=== PATIENT | male | born 1985 | race Caucasian/White ===

== ENCOUNTER 2018-10-06 23:46 | Emergency (ER) | payer BC ==
[2018-10-07] MEDS ORDERED: SODIUM CHLORIDE 0.9% 1,000 ML IV STA (00:17)
[2018-10-07] MEDS ORDERED: HYDROmorphone 1 MG/ML 1 ML SYRINGE IVP STA (00:17)
[2018-10-07] MEDS ORDERED: ONDANSETRON 4 MG/2 ML VIAL IVP STA (00:17)
[2018-10-07 00:32] LABS: Basophils # (A) 0.1 k/uL (0-0.2); Basophils % (A) 1 %; Eosinophils # (A) 0.1 k/uL (0-0.7); Eosinophils % (A) 1 %; HCT 47.3 % (39.0-53.0); Lymphocytes # (A) 1.8 k/uL (1.0-4.8); Lymphocytes % (A) 11 %; MCH 30.1 pg (25.0-35.0); MCHC 33.8 g/dL (31.0-37.0); MCV 88.8 fL (80.0-100.0); Mean Platelet Volume 6.4; Monocytes # (A) 0.8 k/uL (0-1.0); Monocytes % (A) 5 %; Neutrophils % (A) 81 %; Platelet Count 328 k/uL (150-450); RBC 5.33 m/uL (4.30-5.90); RDW 12.2 % (11.5-15.5)
--- NOTE | 2018-10-07 00:41 | ED ---
Abdominal Pain HPI - General Source: patient Mode of arrival: ambulatory Limitations: no limitations <America Farah - Last Filed: 10/07/18 02:20> <Heather Marina - Last Filed: 10/09/18 03:29> - General Chief Complaint: Abdominal Pain Stated Complaint: Abdominal Pain Time Seen by Provider: 10/06/18 23:58 - History of Present Illness Initial Comments: 32-year-old male patient presents to the emergency department today for evaluation of lower abdominal pain. Patient states the pain is been present for the last 5 days but has been steadily worsening. Patient states he has been passing mucousy bloody diarrhea. Patient states he does have history of diverticulitis and this does feel similar to that episode. He denies fever or chills with this. Denies nausea or vomiting. Patient denies any recent rash, shortness breath, chest pain, back pain, numbness, tingling, dizziness, weakness, hematuria, dysuria, urinary urgency, urinary frequency, headache, visual changes, or any other complaints. (America Farah) - Related Data Previous Rx's Medication Instructions Recorded Amoxic-Pot Clav 875-125Mg 1 tab PO Q12HR #20 tablet 10/07/18 [Augmentin 875-125] Allergies Allergy/AdvReac Type Severity Reaction Status Date / Time No Known Allergies Allergy Verified 10/06/18 23:54 Review of Systems ROS Other: All systems not noted in ROS Statement are negative. <America Farah - Last Filed: 10/07/18 02:20> ROS Other: All systems not noted in ROS Statement are negative. <Heather Marina - Last Filed: 10/09/18 03:29> ROS Statement: Those systems with pertinent positive or pertinent negative responses have been documented in the HPI. Past Medical History Past Medical History: No Reported History, GERD/Reflux Additional Past Medical History / Comment(s): BRONCHITIS History of Any Multi-Drug Resistant Organisms: None Reported Past Surgical History: Adenoidectomy, Ear Surgery, Hernia Repair Additional Past Surgical History / Comment(s): acl replacement RT KNEE, RIKKI INGUINAL HERNIA REPAIR, TUBES IN EARS. Past Anesthesia/Blood Transfusion Reactions: No Reported Reaction Past Psychological History: No Psychological Hx Reported Smoking Status: Former smoker Past Alcohol Use History: Occasional Past Drug Use History: Marijuana - Past Family History Father Family Medical History: Hypertension Additional Family Medical History / Comment(s): COLON PLOYPS Mother Family Medical History: No Reported History <America Farah - Last Filed: 10/07/18 02:20> General Exam Limitations: no limitations General appearance: alert, in no apparent distress, other (Physical well- developed, well-nourished adult male patient in no acute distress. Vital signs upon presentation are temperature 97.2F, pulse 100, respirations 20, blood pressure 107/66, pulse ox 98% on room air.) Eye exam: Present: normal appearance, PERRL, EOMI. Absent: scleral icterus, conjunctival injection, periorbital swelling ENT exam: Present: normal exam, normal oropharynx, mucous membranes moist Neck exam: Present: normal inspection. Absent: tenderness, meningismus, lymphadenopathy Respiratory exam: Present: normal lung sounds bilaterally. Absent: respiratory distress, wheezes, rales, rhonchi, stridor Cardiovascular Exam: Present: regular rate, normal rhythm, normal heart sounds. Absent: systolic murmur, diastolic murmur, rubs, gallop, clicks GI/Abdominal exam: Present: soft, tenderness (Lower abdominal tenderness), normal bowel sounds. Absent: distended, guarding, rebound, rigid Neurological exam: Present: alert, oriented X3, CN II-XII intact Psychiatric exam: Present: normal affect, normal mood Skin exam: Present: warm, dry, intact, normal color. Absent: rash <America Farah M - Last Filed: 10/07/18 02:20> Course Vital Signs 10/06/18 10/07/18 10/07/18 23:52 01:14 02:32 Temperature 97.2 F L 98.3 F Pulse Rate 100 82 74 Respiratory 20 16 16 Rate Blood Pressure 107/66 127/67 109/61 O2 Sat by Pulse 98 100 96 Oximetry Medical Decision Making - Lab Data Result diagrams: 10/07/18 00:08 10/07/18 00:08 - Radiology Data Radiology results: report reviewed, image reviewed <America Farah - Last Filed: 10/07/18 02:20> - Lab Data Result diagrams: 10/07/18 00:08 10/07/18 00:08 <Heather Marina - Last Filed: 10/09/18 03:29> - Medical Decision Making 32-year-old male patient presents to the emergency department today for evaluati on of lower abdominal pain. Physical examination did reveal tenderness over the suprapubic and right lower quadrant. Labs reviewed and did reveal elevated white blood cell count 16.0. CT abdomen and pelvis was obtained and showed evidence for acute sigmoid diverticulitis. Patient will be discharged with prescription for Augmentin. He is instructed to monitor diet and to take [id number] Tylenol for pain control. Return parameters were discussed in detail. He verbalizes understanding and agrees with this plan. (America Farah) I was available for consultation in the emergency department. The history and physical exam were done by the midlevel provider. I was consulted for this patient's care. I reviewed the case with the midlevel provider and based on their presentation of the patient, I agree with the assessment, medical decision making and plan of care as documented. Chart was dictated using [employer] dictation software. Attempts were made to correct any dictation errors however some typographical errors may persist. (Heather Marina) - Lab Data Lab Results 10/07/18 10/07/18 10/07/18 Range/Units 00:08 00:08 00:08 WBC 16.0 H (3.8-10.6) k/uL RBC 5.33 (4.30-5.90) m/uL Hgb 16.0 (13.0-17.5) gm/dL Hct 47.3 (39.0-53.0) % MCV 88.8 (80.0-100.0) fL MCH 30.1 (25.0-35.0) pg MCHC 33.8 (31.0-37.0) g/dL RDW 12.2 (11.5-15.5) % Plt Count 328 (150-450) k/uL Neutrophils % 81 % Lymphocytes % 11 % Monocytes % 5 % Eosinophils % 1 % Basophils % 1 % Neutrophils # 13.0 H (1.3-7.7) k/uL Lymphocytes # 1.8 (1.0-4.8) k/uL Monocytes # 0.8 (0-1.0) k/uL Eosinophils # 0.1 (0-0.7) k/uL Basophils # 0.1 (0-0.2) k/uL PT (9.0-12.0) sec INR (<1.2) APTT (22.0-30.0) sec Sodium 137 (137-145) mmol/L Potassium 4.0 (3.5-5.1) mmol/L Chloride 100 (98-107) mmol/L Carbon Dioxide 23 (22-30) mmol/L Anion Gap 14 mmol/L BUN 13 (9-20) mg/dL Creatinine 0.88 (0.66-1.25) mg/dL Est GFR (CKD-EPI)AfAm >90 (>60 ml/min/1.73 sqM) Est GFR (CKD-EPI)NonAf >90 (>60 ml/min/1.73 sqM) Glucose 77 (74-99) mg/dL Plasma Lactic Acid Mckinley 0.9 (0.7-2.0) mmol/L Calcium 9.3 (8.4-10.2) mg/dL Total Bilirubin 0.9 (0.2-1.3) mg/dL AST 21 (17-59) U/L ALT 21 (21-72) U/L Alkaline Phosphatase 70 (38-126) U/L Total Protein 7.3 (6.3-8.2) g/dL Albumin 4.4 (3.5-5.0) g/dL Amylase <30 L (30-110) U/L Lipase 39 (23-300) U/L Urine Color Urine Appearance (Clear) Urine pH (5.0-8.0) Ur Specific Loiza (1.001-1.035) Urine Protein (Negative) Urine Glucose (UA) (Negative) Urine Ketones (Negative) Urine Blood (Negative) Urine Nitrite (Negative) Urine Bilirubin (Negative) Urine Urobilinogen (<2.0) mg/dL Ur Leukocyte Esterase (Negative) 10/07/18 10/07/18 Range/Units 00:08 00:10 WBC (3.8-10.6) k/uL RBC (4.30-5.90) m/uL Hgb (13.0-17.5) gm/dL Hct (39.0-53.0) % MCV (80.0-100.0) fL MCH (25.0-35.0) pg MCHC (31.0-37.0) g/dL RDW (11.5-15.5) % Plt Count (150-450) k/uL Neutrophils % % Lymphocytes % % Monocytes % % Eosinophils % % Basophils % % Neutrophils # (1.3-7.7) k/uL Lymphocytes # (1.0-4.8) k/uL Monocytes # (0-1.0) k/uL Eosinophils # (0-0.7) k/uL Basophils # (0-0.2) k/uL PT 10.5 (9.0-12.0) sec INR 1.0 (<1.2) APTT 25.5 (22.0-30.0) sec Sodium (137-145) mmol/L Potassium (3.5-5.1) mmol/L Chloride (98-107) mmol/L Carbon Dioxide (22-30) mmol/L Anion Gap mmol/L BUN (9-20) mg/dL Creatinine (0.66-1.25) mg/dL Est GFR (CKD-EPI)AfAm (>60 ml/min/1.73 sqM) Est GFR (CKD-EPI)NonAf (>60 ml/min/1.73 sqM) Glucose (74-99) mg/dL Plasma Lactic Acid Mckinley (0.7-2.0) mmol/L Calcium (8.4-10.2) mg/dL Total Bilirubin (0.2-1.3) mg/dL AST (17-59) U/L ALT (21-72) U/L Alkaline Phosphatase (38-126) U/L Total Protein (6.3-8.2) g/dL Albumin (3.5-5.0) g/dL Amylase (30-110) U/L Lipase (23-300) U/L Urine Color Yellow Urine Appearance Clear (Clear) Urine pH 5.5 (5.0-8.0) Ur Specific Loiza >1.050 H (1.001-1.035) Urine Protein Trace H (Negative) Urine Glucose (UA) Negative (Negative) Urine Ketones 4+ H (Negative) Urine Blood Negative (Negative) Urine Nitrite Negative (Negative) Urine Bilirubin Negative (Negative) Urine Urobilinogen <2.0 (<2.0) mg/dL Ur Leukocyte Esterase Negative (Negative) - Radiology Data CT abdomen and pelvis with contrast was obtained. Report was reviewed in its entirety. Impression by Dr. Roth shows evidence of acute sigmoid diverticulitis. No bowel obstruction. (America Farah) Disposition Is patient prescribed a controlled substance at d/c from ED?: No Time of Disposition: 01:58 <America Farah - Last Filed: 10/07/18 02:20> <Heather Marina - Last Filed: 10/09/18 03:29> Clinical Impression: Diverticulitis Disposition: HOME SELF-CARE Condition: Good Instructions (If sedation given, give patient instructions): Diverticulitis (ED), Diverticulitis Diet (ED) Additional Instructions: Start with clear liquid diet and advance as tolerated. Complete antibiotic prescription in full even if you start to feel better. Take tylenol/acetaminophen over the counter for pain control. Return to the emergency department immediately for any new, worsening, or concerning symptoms. Prescriptions: Amoxic-Pot Clav 875-125Mg [Augmentin 875-125] 1 tab PO Q12HR #20 tablet Referrals: None,Stated [Primary Care Provider] - 1-2 days
[2018-10-07 00:42] LABS: Partial Thromboplastin Time 25.5 sec (22.0-30.0); Prothrombin Time 10.5 sec (9.0-12.0)
[2018-10-07 00:58] LABS: ALT 21 U/L (21-72); AST 21 U/L (17-59); Albumin 4.4 g/dL (3.5-5.0); Alkaline Phosphatase 70 U/L (38-126); Anion Gap 14 mmol/L; Blood Urea Nitrogen 13 mg/dL (9-20); Calcium 9.3 mg/dL (8.4-10.2); Carbon Dioxide 23 mmol/L (22-30); Chloride 100 mmol/L (98-107); Glucose 77 mg/dL (74-99); Lipase 39 U/L (23-300); Sodium 137 mmol/L (137-145); Total Bilirubin 0.9 mg/dL (0.2-1.3); Total Protein 7.3 g/dL (6.3-8.2)
--- NOTE | 2018-10-07 01:01 | CT ---
EXAM: CT Abdomen and Pelvis With Intravenous Contrast CLINICAL HISTORY: ITS.REASON CT Reason: abdominal pain TECHNIQUE: Axial computed tomography images of the abdomen and pelvis with intravenous contrast. CTDI is 15 mGy and DLP is 650 mGy-cm. This CT exam was performed using one or more of the following dose reduction techniques: automated exposure control, adjustment of the mA and/or kV according to patient size, and/or use of iterative reconstruction technique. COMPARISON: CT abdomen 03/31/16 FINDINGS: Lung bases: No mass. No consolidation. ABDOMEN: Liver: Unremarkable. Gallbladder and bile ducts: Unremarkable. Pancreas: Unremarkable. Spleen: Unremarkable. Adrenals: Unremarkable. Kidneys and ureters: No hydronephrosis. Stomach and bowel: No bowel obstruction. Thickened and inflamed sigmoid colon with underlying diverticulosis. PELVIS: Appendix: No evidence of appendicitis. Bladder: Unremarkable. Reproductive: Unremarkable. ABDOMEN and PELVIS: Intraperitoneal space: Unremarkable. Bones/joints: No acute fractures. Soft tissues: Unremarkable. Vasculature: No abdominal aortic aneurysm. Lymph nodes: No enlarged lymph nodes. IMPRESSION: Evidence of acute sigmoid diverticulitis. No bowel obstruction. <MYCVCSECTION> [employer] 10/07/18 01:14 Verify Receipt Verified receipt with QUIRINO Deleon for Dr. Farah on 10/07 01:14 (-04:00)
[2018-10-07 01:15] VITALS: RESP 16
[2018-10-07 01:21] LABS: Amylase <30 U/L (30-110)
[2018-10-07 01:32] LABS: Appearance,Urine Clear (Clear); Bilirubin,Urine Negative (Negative); Blood,Urine Negative (Negative); Color,Urine Yellow; Glucose,Urine (UA) Negative (Negative); Ketones,Urine 4+ (Negative); Leukocyte Esterase,Urine Negative (Negative); Nitrite,Urine Negative (Negative); PH, Urine 5.5 (5.0-8.0); Protein,Urine Trace (Negative); Urobilinogen,Urine <2.0 mg/dL (<2.0)
[2018-10-07 01:47] LABS: Specific Gravity,Urine >1.050 (1.001-1.035)
[2018-10-07] MEDS ORDERED: AMOXIC-POT CLAV 875MG STARTER 2 EACH TABLET PO STA (01:58)
[2018-10-07 02:33] VITALS: BP 109/61; PULSE 74; TEMP 98.3
== END 2018-10-07 02:40 | disposition home or self-care (01) ==
LOC: EC 23:46
DX: K57.32 Diverticulitis of large intestine without perforation or abscess without bleeding (principal); D72.829 Elevated white blood cell count, unspecified; K92.1 Melena; Z87.891 Personal history of nicotine dependence; Z87.19 Personal history of other diseases of the digestive system; Z98.890 Other specified postprocedural states; Z83.79 Family history of other diseases of the digestive system
CPT/HCPCS: 36415; 80053; 82150; 83605; 83690; 85025; 85610; 85730; 81003; 87040; 74177; 99284; 96374; 96375; 96361; J2405; J1170; Q9967

== ENCOUNTER 2018-10-11 18:00 | Inpatient (IN) | payer BC ==
[2018-10-11] MEDS ORDERED: SODIUM CHLORIDE 0.9% 500 ML 500 ML IV STA (18:56)
[2018-10-11] MEDS ORDERED: SODIUM CHLORIDE 0.9% 1,000 ML IV STA (18:56)
[2018-10-11] MEDS ORDERED: HYDROmorphone 1 MG/ML 1 ML SYRINGE IVP STA (18:57)
[2018-10-11 19:41] LABS: Basophils # (A) 0.1 k/uL (0-0.2); Basophils % (A) 1 %; Eosinophils # (A) 0.2 k/uL (0-0.7); Eosinophils % (A) 2 %; HCT 47.1 % (39.0-53.0); HGB 16.2 gm/dL (13.0-17.5); Lymphocytes # (A) 1.5 k/uL (1.0-4.8); Lymphocytes % (A) 16 %; MCH 30.4 pg (25.0-35.0); MCHC 34.4 g/dL (31.0-37.0); MCV 88.4 fL (80.0-100.0); Mean Platelet Volume 6.5; Monocytes # (A) 0.5 k/uL (0-1.0); Monocytes % (A) 5 %; Neutrophils # (A) 6.6 k/uL (1.3-7.7); Neutrophils % (A) 74 %; Platelet Count 326 k/uL (150-450); RBC 5.32 m/uL (4.30-5.90); RDW 12.1 % (11.5-15.5)
[2018-10-11 19:49] LABS: ALT 19 U/L (21-72); AST 13 U/L (17-59); Albumin 4.1 g/dL (3.5-5.0); Alkaline Phosphatase 63 U/L (38-126); Amylase <30 U/L (30-110); Anion Gap 13 mmol/L; Blood Urea Nitrogen 11 mg/dL (9-20); Calcium 9.6 mg/dL (8.4-10.2); Carbon Dioxide 24 mmol/L (22-30); Chloride 102 mmol/L (98-107); Glucose 83 mg/dL (74-99); Lipase 43 U/L (23-300); Sodium 139 mmol/L (137-145); Total Bilirubin 0.6 mg/dL (0.2-1.3)
--- NOTE | 2018-10-11 20:08 | CT ---
EXAMINATION TYPE: CT abdomen pelvis w con DATE OF EXAM: 10/11/2018 COMPARISON: 10/07/2018 HISTORY: Abdominal pain. CT DLP: 671.5 mGycm Automated exposure control for dose reduction was used. TECHNIQUE: Helical acquisition of images was performed from the lung bases through the pelvis. CONTRAST: Performed without Oral Contrast and with IV Contrast, patient injected with 100ml mL of Isovue 300. FINDINGS: Lung bases are clear. There is no pleural effusion. Heart size is normal. There is no pericardial eff usion. Liver spleen pancreas gallbladder appear normal. Bile ducts are not dilated. There is no adren al mass. Kidneys show satisfactory contrast opacification. There is no hydronephrosis. The ureters ar e not dilated. Bladder distends smoothly. There is small amount of free fluid in the pelvis. There is suggestion of some wall thickening of the sigmoid colon. There is dilated air filled and flu id filled large bowel. There is large amount of intestinal gas. There are extraluminal air bubbles ar ound the sigmoid colon on the left lateral aspect. IMPRESSION: THERE IS EVIDENCE OF SIGMOID DIVERTICULITIS WITH EXTRALUMINAL AIR BUBBLES AND INFLAMMATORY CHANGES AN D LARGE PHLEGMON. THERE IS DILATED LARGE BOWEL CONSISTENT WITH ILEUS OR MECHANICAL BOWEL OBSTRUCTION DUE TO THE DIVERTICULITIS. MINIMAL FLUID IN THE PELVIS UNCHANGED. DILATED LARGE BOWEL IS INCREASED CO MPARED TO OLD EXAM.
[2018-10-11] MEDS ORDERED: PIPERACILLIN-TAZOBACTAM 3.375 GM in SODIUM CHLORIDE 0.9% 100 ML IVPB STA (20:26)
[2018-10-11 20:28] LABS: Appearance,Urine Clear (Clear); Bilirubin,Urine Negative (Negative); Blood,Urine Negative (Negative); Color,Urine Yellow; Glucose,Urine (UA) Negative (Negative); Ketones,Urine 3+ (Negative); Leukocyte Esterase,Urine Negative (Negative); Nitrite,Urine Negative (Negative); Protein,Urine Trace (Negative)
--- NOTE | 2018-10-11 20:28 | ED ---
Abdominal Pain HPI - General Chief Complaint: Abdominal Pain Stated Complaint: Diverticulitis Time Seen by Provider: 10/11/18 18:30 Source: patient, RN notes reviewed Mode of arrival: ambulatory Limitations: no limitations - History of Present Illness Initial Comments: This is a 32-year-old male with a history of diverticulitis who was diagnosed 5 days ago with a recurrent case of the same who was sent home on oral antibiotics but is back today because of increased lower abdominal pain. He denies any overt fevers chills or sweats to my questioning he does complain of lower abdominal pain however. He did have some nausea. He states the pains on and off he also states he had some blood per rectum. The pain was 8/10 in severity at times will get as bad as 10. No other modifying factors at this time MD Complaint: abdominal pain - Related Data Previous Rx's Medication Instructions Recorded Amoxic-Pot Clav 875-125Mg 1 tab PO Q12HR #20 tablet 10/07/18 [Augmentin 875-125] Allergies Allergy/AdvReac Type Severity Reaction Status Date / Time No Known Allergies Allergy Verified 10/11/18 18:32 Review of Systems ROS Statement: Those systems with pertinent positive or pertinent negative responses have been documented in the HPI. ROS Other: All systems not noted in ROS Statement are negative. Past Medical History Past Medical History: GERD/Reflux Additional Past Medical History / Comment(s): BRONCHITIS, divirticulitis History of Any Multi-Drug Resistant Organisms: None Reported Past Surgical History: Adenoidectomy, Ear Surgery, Hernia Repair Additional Past Surgical History / Comment(s): acl replacement RT KNEE, RIKKI INGUINAL HERNIA REPAIR, TUBES IN EARS. Past Anesthesia/Blood Transfusion Reactions: No Reported Reaction Past Psychological History: No Psychological Hx Reported Smoking Status: Former smoker Past Alcohol Use History: Occasional Past Drug Use History: Marijuana - Past Family History Father Family Medical History: Hypertension Additional Family Medical History / Comment(s): COLON PLOYPS Mother Family Medical History: No Reported History General Exam - General Exam Comments Initial Comments: This is a well-developed well-nourished awake alert oriented 3 male Limitations: no limitations General appearance: alert, anxious, in distress Head exam: Present: atraumatic, normocephalic, normal inspection Eye exam: Present: normal appearance, PERRL, EOMI. Absent: scleral icterus, conjunctival injection, periorbital swelling ENT exam: Present: mucous membranes dry Neck exam: Present: normal inspection. Absent: tenderness, meningismus, lymph adenopathy Respiratory exam: Present: normal lung sounds bilaterally. Absent: respiratory distress, wheezes, rales, rhonchi, stridor Cardiovascular Exam: Present: regular rate, normal rhythm, normal heart sounds. Absent: systolic murmur, diastolic murmur, rubs, gallop, clicks GI/Abdominal exam: Present: soft, tenderness (Some suprapubic left lower quadrant tenderness palpation no overt guarding or rebound at this time), normal bowel sounds. Absent: distended, guarding, rebound, rigid, bruit, pulsatile mass Rectal exam: Present: deferred Extremities exam: Present: normal inspection, full ROM, normal capillary refill. Absent: tenderness, pedal edema, joint swelling, calf tenderness Back exam: Present: normal inspection Neurological exam: Present: alert, oriented X3, CN II-XII intact Psychiatric exam: Present: normal affect, normal mood Skin exam: Present: warm, dry, intact, normal color. Absent: rash Course Vital Signs 10/11/18 18:13 Temperature 98.5 F Pulse Rate 81 Respiratory 20 Rate Blood Pressure 120/78 O2 Sat by Pulse 100 Oximetry - Reevaluation(s) Reevaluation #1: 10/11/18 20:41 I did discuss the case with Dr. Piedra who will be consult. Medical Decision Making - Lab Data Result diagrams: 10/11/18 19:24 10/11/18 19:24 Lab Results 10/11/18 10/11/18 10/11/18 Range/Units 19:24 19:24 19:24 WBC 9.0 (3.8-10.6) k/uL RBC 5.32 (4.30-5.90) m/uL Hgb 16.2 (13.0-17.5) gm/dL Hct 47.1 (39.0-53.0) % MCV 88.4 (80.0-100.0) fL MCH 30.4 (25.0-35.0) pg MCHC 34.4 (31.0-37.0) g/dL RDW 12.1 (11.5-15.5) % Plt Count 326 (150-450) k/uL Neutrophils % 74 % Lymphocytes % 16 % Monocytes % 5 % Eosinophils % 2 % Basophils % 1 % Neutrophils # 6.6 (1.3-7.7) k/uL Lymphocytes # 1.5 (1.0-4.8) k/uL Monocytes # 0.5 (0-1.0) k/uL Eosinophils # 0.2 (0-0.7) k/uL Basophils # 0.1 (0-0.2) k/uL Sodium 139 (137-145) mmol/L Potassium 4.0 (3.5-5.1) mmol/L Chloride 102 (98-107) mmol/L Carbon Dioxide 24 (22-30) mmol/L Anion Gap 13 mmol/L BUN 11 (9-20) mg/dL Creatinine 0.64 L (0.66-1.25) mg/dL Est GFR (CKD-EPI)AfAm >90 (>60 ml/min/1.73 sqM) Est GFR (CKD-EPI)NonAf >90 (>60 ml/min/1.73 sqM) Glucose 83 (74-99) mg/dL Plasma Lactic Acid Mckinely 1.0 (0.7-2.0) mmol/L Calcium 9.6 (8.4-10.2) mg/dL Total Bilirubin 0.6 (0.2-1.3) mg/dL AST 13 L (17-59) U/L ALT 19 L (21-72) U/L Alkaline Phosphatase 63 (38-126) U/L Total Protein 7.0 (6.3-8.2) g/dL Albumin 4.1 (3.5-5.0) g/dL Amylase <30 L (30-110) U/L Lipase 43 (23-300) U/L Urine Color Urine Appearance (Clear) Urine pH (5.0-8.0) Urine Protein (Negative) Urine Glucose (UA) (Negative) Urine Blood (Negative) Urine Nitrite (Negative) Urine Bilirubin (Negative) Urine Urobilinogen (<2.0) mg/dL Ur Leukocyte Esterase (Negative) 10/11/18 Range/Units 20:18 WBC (3.8-10.6) k/uL RBC (4.30-5.90) m/uL Hgb (13.0-17.5) gm/dL Hct (39.0-53.0) % MCV (80.0-100.0) fL MCH (25.0-35.0) pg MCHC (31.0-37.0) g/dL RDW (11.5-15.5) % Plt Count (150-450) k/uL Neutrophils % % Lymphocytes % % Monocytes % % Eosinophils % % Basophils % % Neutrophils # (1.3-7.7) k/uL Lymphocytes # (1.0-4.8) k/uL Monocytes # (0-1.0) k/uL Eosinophils # (0-0.7) k/uL Basophils # (0-0.2) k/uL Sodium (137-145) mmol/L Potassium (3.5-5.1) mmol/L Chloride (98-107) mmol/L Carbon Dioxide (22-30) mmol/L Anion Gap mmol/L BUN (9-20) mg/dL Creatinine (0.66-1.25) mg/dL Est GFR (CKD-EPI)AfAm (>60 ml/min/1.73 sqM) Est GFR (CKD-EPI)NonAf (>60 ml/min/1.73 sqM) Glucose (74-99) mg/dL Plasma Lactic Acid Mckinley (0.7-2.0) mmol/L Calcium (8.4-10.2) mg/dL Total Bilirubin (0.2-1.3) mg/dL AST (17-59) U/L ALT (21-72) U/L Alkaline Phosphatase (38-126) U/L Total Protein (6.3-8.2) g/dL Albumin (3.5-5.0) g/dL Amylase (30-110) U/L Lipase (23-300) U/L Urine Color Yellow Urine Appearance Clear (Clear) Urine pH 6.0 (5.0-8.0) Urine Protein Trace H (Negative) Urine Glucose (UA) Negative (Negative) Urine Blood Negative (Negative) Urine Nitrite Negative (Negative) Urine Bilirubin Negative (Negative) Urine Urobilinogen 2.0 (<2.0) mg/dL Ur Leukocyte Esterase Negative (Negative) - Radiology Data Radiology results: report reviewed (I did review the imaging and report there is evidence of sigmoid diverticulitis with some extraluminal air bubbles infla mmatory changes and large phlegmon is dilated large bowel consistent with ileus or mechanical bowel obstruction. Patient was still passing gas and some blood.), image reviewed Disposition Clinical Impression: Diverticulitis, Abdominal pain, Failure of outpatient treatment Disposition: ADMITTED IP TO THIS [facility] Condition: Fair Referrals: None,Stated [Primary Care Provider] - 1-2 days
[2018-10-11 20:44] LABS: Specific Gravity,Urine >1.050 (1.001-1.035)
[2018-10-11] MEDS ORDERED: NALOXONE 0.4 MG/ML 1 ML VIAL IV PRN (20:47)
[2018-10-11] MEDS: SODIUM CHLORIDE 0.9% 1,000 ML IV SCH (21:06)
[2018-10-11] MEDS: ONDANSETRON 4 MG/2 ML VIAL IVP PRN (22:58)
[2018-10-12] MEDS: PIPERACILLIN-TAZOBACTAM 3.375 GM in SODIUM CHLORIDE 0.9% 100 ML IVPB SCH ×4 (00:44→23:22)
[2018-10-12] MEDS: HYDROmorphone 1 MG/ML 1 ML SYRINGE IVP PRN ×5 (02:45→22:34)
[2018-10-12] MEDS: SODIUM CHLORIDE 0.9% 1,000 ML IV SCH ×3 (05:40→21:36)
[2018-10-12] MEDS: ONDANSETRON 4 MG/2 ML VIAL IVP PRN ×3 (07:44→21:32)
[2018-10-12] MEDS: PANTOPRAZOLE 40 MG/10 ML VIAL IV SCH (07:44)
--- NOTE | 2018-10-12 10:07 | P.GSCN ---
History of Present Illness Consult date: 10/12/18 Reason for Consult: Abdominal pain, diverticulitis Requesting physician: Jeanmarie Curtis History of present illness: CHIEF COMPLAINT: Abdominal pain HISTORY OF PRESENT ILLNESS: 32-year-old male presented to emergency room with a chief complaint of abdominal pain. Patient reports he was seen in the emergency room on 10/07/2018 and diagnosed with diverticulitis. Patient was prescribed Augmentin and discharged home. Patient reports his pain has not improved and has been going on for about two weeks now. He reports passing flatus and having a loose BM this morning. Denies nausea or vomiting. Patient reports he was diagnosed with diverticulitis first in 2006. He denies previous colonoscopy. PAST MEDICAL HISTORY: See list. PAST SURGICAL HISTORY: See list. SOCIAL HISTORY: No illicit drug use. REVIEW OF SYSTEMS: CONSTITUTIONAL: Denies fever or chills. HEENT: Denies blurred vision, vision changes, or eye pain. Denies hemoptysis CARDIOVASCULAR: Denies chest pain or pressure. RESPIRATORY: No shortness of breath. GASTROINTESTINAL: Refer to HPI for pertinent findings HEMATOLOGIC: Denies bleeding disorders. GENITOURINARY: Denies any blood in urine. SKIN: Denies pruitis. Denies rash. PHYSICAL EXAM: VITAL SIGNS: Reviewed. GENERAL: Well-developed in no acute distress. HEENT: No sclera icterus. Extraocular movements grossly intact. Moist buccal m [place]. Head is atraumatic, normocephalic. ABDOMEN: Soft. Nondistended. Positive bowel sounds. Tenderness upon palpation of left lower quadrant. NEUROLOGIC: Alert and oriented. Cranial nerves II through XII grossly intact. LABORATORY DATA: WBC 9.0. Hemoglobin 16.2. Lactic acid 1.0. AST 13. ALT 19. Amylase <30. Lipase 43. IMAGING: Per radiologist's dictation: 1. CT abdomen and pelvis evidence of sigmoid diverticulitis with extraluminal air bubbles inflammatory changes and large phlegmon. Dilated large bowel consistent with ileus or mechanical bowel resection due to diverticulitis. ASSESSMENT: 1. Abdominal pain 2. Acute sigmoid diverticulitis, failed outpatient treatment PLAN: 1. No surgical intervention recommended at this time 2. Continue Zosyn. Add Flagyl 3. Popsicles and ice chips only for today. Clear liquid diet to begin tomorrow 4. Patient will require outpatient colonoscopy in 4-6 weeks Nurse practitioner note has been reviewed by physician. Signing provider agrees with the documented findings, assessment, and plan of care. Past Medical History Past Medical History: GERD/Reflux Additional Past Medical History / Comment(s): BRONCHITIS, divirticulitis History of Any Multi-Drug Resistant Organisms: None Reported Past Surgical History: Adenoidectomy, Ear Surgery, Hernia Repair Additional Past Surgical History / Comment(s): acl replacement RT KNEE, RIKKI IN GUINAL HERNIA REPAIR, TUBES IN EARS. 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 Smoking Status: Current every day smoker Past Alcohol Use History: Occasional Additional Past Alcohol Use History / Comment(s): STARTED SMOKING AT AGE 16, QUIT WAS SMOKING 1 PPD. Past Drug Use History: Marijuana Additional Drug Use History / Comment(s): NONE SINCE 2014 - Past Family History Father Family Medical History: Hypertension Additional Family Medical History / Comment(s): COLON PLOYPS Mother Family Medical History: No Reported History Medications and Allergies Home Medications Medication Instructions Recorded Confirmed Type Amoxic-Pot Clav 875-125Mg 1 tab PO Q12HR #20 tablet 10/07/18 10/11/18 Rx [Augmentin 875-125] Allergies Allergy/AdvReac Type Severity Reaction Status Date / Time No Known Allergies Allergy Verified 10/11/18 18:32 Surgical - Exam Vital Signs Temp Pulse Resp BP Pulse Ox 98.5 F 81 20 120/78 100 10/11/18 18:13 10/11/18 18:13 10/11/18 18:13 10/11/18 18:13 10/11/18 18:13 Results - Labs 10/11/18 19:24 10/11/18 19:24 Abnormal Lab Results - Last 24 Hours (Table) 10/11/18 10/11/18 Range/Units 19:24 20:18 Creatinine 0.64 L (0.66-1.25) mg/dL AST 13 L (17-59) U/L ALT 19 L (21-72) U/L Amylase <30 L (30-110) U/L Ur Specific [place] >1.050 H (1.001-1.035) Urine Protein Trace H (Negative) Urine Ketones 3+ H (Negative) Diabetes panel 10/11/18 Range/Units 19:24 Sodium 139 (137-145) mmol/L Potassium 4.0 (3.5-5.1) mmol/L Chloride 102 (98-107) mmol/L Carbon Dioxide 24 (22-30) mmol/L BUN 11 (9-20) mg/dL Creatinine 0.64 L (0.66-1.25) mg/dL Glucose 83 (74-99) mg/dL Calcium 9.6 (8.4-10.2) mg/dL AST 13 L (17-59) U/L ALT 19 L (21-72) U/L Alkaline Phosphatase 63 (38-126) U/L Total Protein 7.0 (6.3-8.2) g/dL Albumin 4.1 (3.5-5.0) g/dL Calcium panel 10/11/18 Range/Units 19:24 Calcium 9.6 (8.4-10.2) mg/dL Albumin 4.1 (3.5-5.0) g/dL Pituitary panel 10/11/18 Range/Units 19:24 Sodium 139 (137-145) mmol/L Potassium 4.0 (3.5-5.1) mmol/L Chloride 102 (98-107) mmol/L Carbon Dioxide 24 (22-30) mmol/L BUN 11 (9-20) mg/dL Creatinine 0.64 L (0.66-1.25) mg/dL Glucose 83 (74-99) mg/dL Calcium 9.6 (8.4-10.2) mg/dL Adrenal panel 10/11/18 Range/Units 19:24 Sodium 139 (137-145) mmol/L Potassium 4.0 (3.5-5.1) mmol/L Chloride 102 (98-107) mmol/L Carbon Dioxide 24 (22-30) mmol/L BUN 11 (9-20) mg/dL Creatinine 0.64 L (0.66-1.25) mg/dL Glucose 83 (74-99) mg/dL Calcium 9.6 (8.4-10.2) mg/dL Total Bilirubin 0.6 (0.2-1.3) mg/dL AST 13 L (17-59) U/L ALT 19 L (21-72) U/L Alkaline Phosphatase 63 (38-126) U/L Total Protein 7.0 (6.3-8.2) g/dL Albumin 4.1 (3.5-5.0) g/dL Assessment and Plan (1) Abdominal pain Current Visit: Yes Status: Acute Code(s): R10.9 - UNSPECIFIED ABDOMINAL PAIN SNOMED Code(s): 08408188 (2) Diverticulitis Current Visit: Yes Status: Acute Code(s): K57.92 - DVTRCLI OF INTEST, PART UNSP, W/O PERF OR ABSCESS W/O BLEED SNOMED Code(s): 091777815 (3) Failure of outpatient treatment Current Visit: Yes Status: Acute Code(s): Z78.9 - OTHER SPECIFIED HEALTH STATUS SNOMED Code(s): 633818501
[2018-10-12] MEDS: metroNIDAZOLE-NS PMX 500 MG in SALINE 1 100ML.BAG IVPB SCH ×3 (10:42→23:22)
--- NOTE | 2018-10-12 14:38 | P.HPIM ---
History of Present Illness Chief Complaint: Abdominal pain This is a 30-year-old gentleman with a history of diverticulitis diagnosed 5 years ago comes in with above-mentioned complaints. The patient says that he was in the ER a few days ago for abdominal pain. He was diagnosed with diverticulitis and sent home on no antibiotics. He says that his abdominal pain was not improving but in fact worsening. He was also having blood in the stools and the stools or mucousy. He denies any fever or chills, he denies any nausea vomiting, he does not complain of any cough or shortness breath, no headache, loss of vision or blurry vision, no tingling numbness on his extremities, no itch or rash. ER course-temperature 98.1 pulse 79 respirations 17 blood pressure 108/72 satting 97% on room air. labwork was done which showed WBC 9.0 hemoglobin 16.2 platelets 326 sodium 139 potassium 4.0 bun 11 creatinine 0.64 [address]ase [address] of the abdomen showed sigmoid diverticulitis with extraluminal air bubbles and telemetry changes and large phlegmon there is better large bowel consistent with ileus or mechanical bowel obstruction due to the diverticulitis. Patient was started on IV fluids and antibiotics was also given pain medications and admitted to the hospitalist service a further evaluation and management Review of Systems All systems: negative Past Medical History Past Medical History: GERD/Reflux Additional Past Medical History / Comment(s): BRONCHITIS, divirticulitis History of Any Multi-Drug Resistant Organisms: None Reported Past Surgical History: Adenoidectomy, Ear Surgery, Hernia Repair Additional Past Surgical History / Comment(s): acl replacement RT KNEE, RIKKI INGUINAL HERNIA REPAIR, TUBES IN EARS. 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 Smoking Status: Current every day smoker Past Alcohol Use History: Occasional Additional Past Alcohol Use History / Comment(s): STARTED SMOKING AT AGE 16, QUIT -2015 WAS SMOKING 1 PPD. Past Drug Use History: Marijuana Additional Drug Use History / Comment(s): NONE SINCE 2014 - Past Family History Father Family Medical History: Hypertension Additional Family Medical History / Comment(s): COLON PLOYPS Mother Family Medical History: No Reported History Medications and Allergies Home Medications Medication Instructions Recorded Confirmed Type Amoxic-Pot Clav 875-125Mg 1 tab PO Q12HR #20 tablet 10/07/18 10/11/18 Rx [Augmentin 875-125] Allergies Allergy/AdvReac Type Severity Reaction Status Date / Time No Known Allergies Allergy Verified 10/11/18 18:32 Physical Exam Vitals: Vital Signs Temp Pulse Pulse Resp BP BP Pulse Ox 10/12/18 11:55 98.1 F 79 17 108/74 97 10/12/18 05:00 97.7 F 57 L 18 118/73 98 10/11/18 23:35 71 16 10/11/18 23:12 97.5 F L 71 16 107/72 96 10/11/18 23:07 98 F 64 18 132/63 97 10/11/18 22:00 98.3 F 62 18 119/83 98 10/11/18 21:04 82 18 128/78 97 10/11/18 18:13 98.5 F 81 20 120/78 100 Intake and Output 10/11/18 10/12/18 10/12/18 22:59 06:59 14:59 Intake Total 750 1025 Output Total 200 Balance 750 825 Intake: Intake, IV Titration 750 1025 Amount Piperacillin-Tazobactam 3 50 .375 gm In Sodium Chloride 0.9% 100 ml @ 25 mls/hr IVPB Q8HR [facility] Rx# :[id number] Sodium Chloride 0.9% 1, 750 875 000 ml @ 125 mls/hr IV . Q8H [facility] Rx#:[id number] metroNIDAZOLE-NS PMX 500 100 mg In Saline 1 100ml.bag @ 100 mls/hr IVPB Q8HR [facility] Rx#:[id number] Output: Emesis 200 Other: Voiding Method Toilet # Voids 1 4 # Bowel Movements 2 Weight 72.575 kg On exam, alert and oriented x3. HEENT: Conjunctivae normal. eyes normal. NECK: No JVD. No thyroid enlargement. No LNs CARDIOVASCULAR: S1, S2 muffled. No murmur RESPIRATION: Breath sounds diminished in the bases. No rhonchi or crackles. No bronchial breathing. ABDOMEN: Soft, tenderness appreciated in the left low quadrant and in the suprapubic area. Bowel sounds present no guarding, no rebound tenderness appreciated LEGS: No edema. no swelling NERVOUS SYSTEM: Cranial N 2-12 grossly normal. Moves all 4 limbs. No focal deficits. No sensory deficit. No signs of cerebellar dysfucntion. Skin: no ulcer no rash Joints: No active swelling. No inflammation. Lymphatic system. No LN neck axilla or groin. Results CBC & Chem 7: 10/11/18 19:24 10/11/18 19:24 Labs: Abnormal Lab Results - Last 24 Hours (Table) 10/11/18 10/11/18 Range/Units 19:24 20:18 Creatinine 0.64 L (0.66-1.25) mg/dL AST 13 L (17-59) U/L ALT 19 L (21-72) U/L Amylase <30 L (30-110) U/L Ur Specific [place] >1.050 H (1.001-1.035) Urine Protein Trace H (Negative) Urine Ketones 3+ H (Negative) Thrombosis Risk Factor Assmnt - Choose All That Apply Any of the Below Risk Factors Present?: No Other Risk Factors: No Other congenital or acquired thrombophilia - If yes, enter type in comment: No Thrombosis Risk Factor Assessment Level: Very Low Risk Assessment and Plan Assessment: - ACUTE DIVERTICULITIS with air bubbles and phlegmonous changes - Bleeding per rectum possibly secondary to diverticulitis Plan - Patient is admitted to [facility] - Patient is nothing by mouth and advance to clear liquids if he can tolerate - Continue IV fluids - Continue pain medications - Continue antibiotics - General surgery consulted. Appreciate recommendations no surgical interventions planned for now. Patient will eat colonoscopy in the next 4-6 weeks - DVT and GI prophylaxis - We'll order for lab work in the morning - Expected length of stay: 2 midnights - Patient is full code Time with Patient: Greater than 30
[2018-10-13] MEDS: HYDROmorphone 1 MG/ML 1 ML SYRINGE IVP PRN ×5 (02:23→23:36)
[2018-10-13] MEDS: SODIUM CHLORIDE 0.9% 1,000 ML IV SCH ×3 (05:00→23:40)
[2018-10-13] MEDS: metroNIDAZOLE-NS PMX 500 MG in SALINE 1 100ML.BAG IVPB SCH ×3 (07:16→23:36)
[2018-10-13] MEDS: PANTOPRAZOLE 40 MG/10 ML VIAL IV SCH (07:17)
[2018-10-13 07:36] LABS: HCT 43.5 % (39.0-53.0); HGB 14.5 gm/dL (13.0-17.5); MCH 29.4 pg (25.0-35.0); MCHC 33.2 g/dL (31.0-37.0); MCV 88.6 fL (80.0-100.0); Mean Platelet Volume 6.8; Platelet Count 370 k/uL (150-450); RBC 4.91 m/uL (4.30-5.90); RDW 12.9 % (11.5-15.5)
[2018-10-13 07:58] LABS: Anion Gap 9 mmol/L; Blood Urea Nitrogen 13 mg/dL (9-20); Calcium 8.7 mg/dL (8.4-10.2); Carbon Dioxide 22 mmol/L (22-30); Chloride 108 mmol/L (98-107); Glucose 82 mg/dL (74-99); Potassium 4.4 mmol/L (3.5-5.1); Sodium 139 mmol/L (137-145)
--- NOTE | 2018-10-13 09:16 | P.PN ---
<Valeria Nice Yandy - Last Filed: 10/13/18 09:10> Subjective Progress Note Date: 10/13/18 CHIEF COMPLAINT: Abdominal pain HISTORY OF PRESENT ILLNESS: Patient examined this morning at the bedside. Patient states he is feeling better today. His pain is controlled with IV narcotics. Denies nausea or vomiting this morning. Patient has been tolerating ice chips, water, and Popsicles. Patient was ordered clear liquid tray for breakfast but states he has not received it yet. Remains on Zosyn and flagyl. Passing flatus and having BMs. WBC today increased to 13.0. PHYSICAL EXAM: VITAL SIGNS: Reviewed. GENERAL: Well-developed in no acute distress. HEENT: No sclera icterus. Extraocular movements grossly intact. Moist buccal mucosa. Head is atraumatic, normocephalic. ABDOMEN: Soft. Nondistended. Positive bowel sounds. Nontender. NEUROLOGIC: Alert and oriented. Cranial nerves II through XII grossly intact. ASSESSMENT: 1. Abdominal pain 2. Acute sigmoid diverticulitis, failed outpatient treatment PLAN: 1. No surgical intervention recommended at this time 2. Continue Zosyn and Flagyl 3. Continue clear liquid diet 4. Monitor WBC. 5. Patient will require outpatient colonoscopy in 4-6 weeks Nurse practitioner note has been reviewed by physician. Signing provider agrees with the documented findings, assessment, and plan of care. Objective - Vital Signs Vital signs: Vital Signs Temp 97.5 F L 10/13/18 05:00 Pulse 58 L 10/13/18 05:00 Resp 18 10/13/18 05:00 BP 107/69 10/13/18 05:00 Pulse Ox 98 10/13/18 05:00 Intake & Output 10/12/18 10/13/18 10/13/18 18:59 06:59 18:59 Intake Total 1025 1000 Output Total 200 Balance 825 1000 Intake: Intake, IV Titration 1025 1000 Amount Piperacillin-Tazobactam 3 50 .375 gm In Sodium Chloride 0.9% 100 ml @ 25 mls/hr IVPB Q8HR [facility] Rx# :[id number] Sodium Chloride 0.9% 1, 875 1000 000 ml @ 125 mls/hr IV . Q8H [facility] Rx#:[id number] metroNIDAZOLE-NS PMX 500 100 mg In Saline 1 100ml.bag @ 100 mls/hr IVPB Q8HR [facility] Rx#:[id number] Output: Emesis 200 Other: Voiding Method Toilet Toilet # Voids 4 1 # Bowel Movements 2 1 - Labs CBC & Chem 7: 10/13/18 07:19 10/13/18 07:19 Labs: Abnormal Lab Results - Last 24 Hours (Table) 10/13/18 10/13/18 Range/Units 07:19 07:19 WBC 13.0 H (3.8-10.6) k/uL Chloride 108 H (98-107) mmol/L Creatinine 0.65 L (0.66-1.25) mg/dL Microbiology - Last 24 Hours (Table) 10/11/18 19:24 Blood Culture - Preliminary Blood No Growth after 24 hours Assessment and Plan (1) Abdominal pain Current Visit: Yes Status: Acute Code(s): R10.9 - UNSPECIFIED ABDOMINAL PAIN SNOMED Code(s): 26132944 (2) Diverticulitis Current Visit: Yes Status: Acute Code(s): K57.92 - DVTRCLI OF INTEST, PART UNSP, W/O PERF OR ABSCESS W/O BLEED SNOMED Code(s): 247250370 (3) Failure of outpatient treatment Current Visit: Yes Status: Acute Code(s): Z78.9 - OTHER SPECIFIED HEALTH STATUS SNOMED Code(s): 476855865 <Chris Linton - Last Filed: 10/13/18 13:32> Subjective As above. Patient had a small bowel movement this morning. Still feels nauseated. Still feels bloated. White blood cell count slightly elevated. Denies any significant flatus. Abdomen reveals mild distention with localized tenderness left lower quadrant. Continue antibiotics. Change to nothing by mouth. Objective - Vital Signs Vital signs: Vital Signs Temp 97.8 F 10/13/18 12:49 Pulse 75 10/13/18 12:49 Resp 16 10/13/18 12:49 BP 119/78 10/13/18 12:49 Pulse Ox 97 10/13/18 12:49 Intake & Output 10/12/18 10/13/18 10/13/18 18:59 06:59 18:59 Intake Total 1025 1000 Output Total 200 Balance 825 1000 Intake: Intake, IV Titration 1025 1000 Amount Piperacillin-Tazobactam 3 50 .375 gm In Sodium Chloride 0.9% 100 ml @ 25 mls/hr IVPB Q8HR [facility] Rx# :[id number] Sodium Chloride 0.9% 1, 875 1000 000 ml @ 125 mls/hr IV . Q8H [facility] Rx#:[id number] metroNIDAZOLE-NS PMX 500 100 mg In Saline 1 100ml.bag @ 100 mls/hr IVPB Q8HR [facility] Rx#:[id number] Output: Emesis 200 Other: Voiding Method Toilet Toilet Toilet # Voids 4 1 # Bowel Movements 2 1 - Labs CBC & Chem 7: 10/13/18 07:19 10/13/18 07:19 Labs: Abnormal Lab Results - Last 24 Hours (Table) 10/13/18 10/13/18 Range/Units 07:19 07:19 WBC 13.0 H (3.8-10.6) k/uL Chloride 108 H (98-107) mmol/L Creatinine 0.65 L (0.66-1.25) mg/dL Microbiology - Last 24 Hours (Table) 10/11/18 19:24 Blood Culture - Preliminary Blood No Growth after 24 hours
[2018-10-13] MEDS: PIPERACILLIN-TAZOBACTAM 3.375 GM in SODIUM CHLORIDE 0.9% 100 ML IVPB SCH ×3 (09:39→23:36)
[2018-10-13] MEDS: ONDANSETRON 4 MG/2 ML VIAL IVP PRN ×2 (14:45→19:08)
--- NOTE | 2018-10-13 16:14 | P.PN ---
Subjective Patient still having nausea and distention in the belly Not tolerating diet Abd pain better, no diarrhea, no constipation. Objective - Vital Signs Vital signs: Vital Signs Temp 97.8 F 10/13/18 12:49 Pulse 75 10/13/18 12:49 Resp 16 10/13/18 12:49 BP 119/78 10/13/18 12:49 Pulse Ox 97 10/13/18 12:49 Intake & Output 10/12/18 10/13/18 10/13/18 18:59 06:59 18:59 Intake Total 1025 1000 Output Total 200 Balance 825 1000 Intake: Intake, IV Titration 1025 1000 Amount Piperacillin-Tazobactam 3 50 .375 gm In Sodium Chloride 0.9% 100 ml @ 25 mls/hr IVPB Q8HR [facility] Rx# :[id number] Sodium Chloride 0.9% 1, 875 1000 000 ml @ 125 mls/hr IV . Q8H [facility] Rx#:[id number] metroNIDAZOLE-NS PMX 500 100 mg In Saline 1 100ml.bag @ 100 mls/hr IVPB Q8HR [facility] Rx#:[id number] Output: Emesis 200 Other: Voiding Method Toilet Toilet Toilet # Voids 4 1 # Bowel Movements 2 1 - Exam On exam, alert and oriented x3. HEENT: Conjunctivae normal. eyes normal. NECK: No JVD. No thyroid enlargement. No LNs CARDIOVASCULAR: S1, S2 muffled. No murmur RESPIRATION: Breath sounds diminished in the bases. No rhonchi or crackles. No bronchial breathing. ABDOMEN: Soft, mildly tender in the left lower quadrant . Distended, no guarding at this time LEGS: No edema. no swelling NERVOUS SYSTEM: Cranial N 2-12 grossly normal. Moves all 4 limbs. No focal deficits. No sensory deficit. No signs of cerebellar dysfucntion. Skin: no ulcer no rash Joints: No active swelling. No inflammation. Lymphatic system. No LN neck axilla or groin. - Labs CBC & Chem 7: 10/13/18 07:19 10/13/18 07:19 Labs: Abnormal Lab Results - Last 24 Hours (Table) 10/13/18 10/13/18 Range/Units 07:19 07:19 WBC 13.0 H (3.8-10.6) k/uL Chloride 108 H (98-107) mmol/L Creatinine 0.65 L (0.66-1.25) mg/dL Microbiology - Last 24 Hours (Table) 10/11/18 19:24 Blood Culture - Preliminary Blood No Growth after 24 hours Assessment and Plan Assessment: - ACUTE DIVERTICULITIS with air bubbles and phlegmonous changes - Bleeding per rectum possibly secondary to diverticulitis - Ileus versus bowel obstruction as per the CAT scan Plan - Patient is nothing by mouth as of now - We'll continue antibiotics - We'll order for abdominal x-ray has abdominal looks more distended - Continue pain medications - will follow the patient up Time with Patient: Greater than 30
--- NOTE | 2018-10-13 17:25 | XR ---
EXAMINATION TYPE: XR abdomen 2V DATE OF EXAM: 10/13/2018 COMPARISON: NONE HISTORY: Abdominal pain TECHNIQUE: 3 views FINDINGS: There is a large amount of intestinal gas in loops of large and small bowel. There is no si gn of intestinal obstruction or pneumoperitoneum. Fecal pattern is normal. There are no pathologic ca lcifications over the kidneys. Lung bases are clear. IMPRESSION: Intestinal gas pattern consistent with ileus or air swallowing. No free air.
[2018-10-14] MEDS: ONDANSETRON 4 MG/2 ML VIAL IVP PRN ×4 (00:46→20:25)
[2018-10-14] MEDS: SODIUM CHLORIDE 0.9% 1,000 ML IV SCH ×3 (03:50→22:22)
[2018-10-14] MEDS: HYDROmorphone 1 MG/ML 1 ML SYRINGE IVP PRN ×3 (03:50→11:01)
[2018-10-14] MEDS: PANTOPRAZOLE 40 MG/10 ML VIAL IV SCH (07:07)
[2018-10-14] MEDS: PIPERACILLIN-TAZOBACTAM 3.375 GM in SODIUM CHLORIDE 0.9% 100 ML IVPB SCH ×3 (07:08→23:43)
[2018-10-14] MEDS: metroNIDAZOLE-NS PMX 500 MG in SALINE 1 100ML.BAG IVPB SCH ×3 (07:08→23:43)
[2018-10-14 07:45] LABS: Basophils % (A) 0 %; Eosinophils % (A) 0 %; HCT 41.9 % (39.0-53.0); HGB 13.8 gm/dL (13.0-17.5); Lymphocytes # (A) 1.3 k/uL (1.0-4.8); Lymphocytes % (A) 13 %; MCH 29.2 pg (25.0-35.0); MCHC 32.9 g/dL (31.0-37.0); MCV 88.8 fL (80.0-100.0); Mean Platelet Volume 7.1; Monocytes # (A) 0.5 k/uL (0-1.0); Monocytes % (A) 5 %; Neutrophils # (A) 7.8 k/uL (1.3-7.7); Neutrophils % (A) 79 %; Platelet Count 341 k/uL (150-450); RBC 4.72 m/uL (4.30-5.90); RDW 13.2 % (11.5-15.5); WBC 9.8 k/uL (3.8-10.6)
[2018-10-14 08:11] LABS: Anion Gap 8 mmol/L; Blood Urea Nitrogen 13 mg/dL (9-20); Calcium 8.5 mg/dL (8.4-10.2); Carbon Dioxide 26 mmol/L (22-30); Chloride 104 mmol/L (98-107); Glucose 77 mg/dL (74-99); Potassium 4.1 mmol/L (3.5-5.1); Sodium 138 mmol/L (137-145)
--- NOTE | 2018-10-14 09:36 | P.PN ---
Subjective Progress Note Date: 10/14/18 Principal diagnosis: Diverticulitis Patient feels better today. Having some hiccups and occasional nausea. No vomiting. Mild reflux. He did pass more flatus. Yesterday afternoon his x- rays somewhat improved. White blood cell count is 9 today. He is afebrile. Objective - Vital Signs Vital signs: Vital Signs Temp 98.3 F 10/14/18 04:51 Pulse 68 10/14/18 04:51 Resp 18 10/14/18 04:51 BP 118/66 10/14/18 04:51 Pulse Ox 96 10/14/18 04:51 Intake & Output 10/13/18 10/14/18 10/14/18 18:59 06:59 18:59 Intake Total 200 1900 Balance 200 1900 Intake: Intake, IV Titration 200 1900 Amount Piperacillin-Tazobactam 3 100 100 .375 gm In Sodium Chloride 0.9% 100 ml @ 25 mls/hr IVPB Q8HR [facility] Rx# :[id number] Sodium Chloride 0.9% 1, 1700 000 ml @ 125 mls/hr IV . Q8H [facility] Rx#:[id number] metroNIDAZOLE-NS PMX 500 100 100 mg In Saline 1 100ml.bag @ 100 mls/hr IVPB Q8HR [facility] Rx#:[id number] Other: Voiding Method Toilet Toilet # Voids 1 1 # Bowel Movements 1 - Exam Abdomen: Soft, definitely less distended, mild left-sided tenderness - Labs CBC & Chem 7: 10/14/18 06:53 10/14/18 06:53 Labs: Abnormal Lab Results - Last 24 Hours (Table) 10/14/18 Range/Units 06:53 Neutrophils # 7.8 H (1.3-7.7) k/uL Microbiology - Last 24 Hours (Table) 10/11/18 19:24 Blood Culture - Preliminary Blood No Growth after 48 hours Assessment and Plan (1) Diverticulitis Narrative/Plan: Continue IV antibiotics. Keep essentially nothing by mouth for now. Patient's partial colonic obstruction related to diverticulitis improving. Current Visit: Yes Status: Acute Code(s): K57.92 - DVTRCLI OF INTEST, PART UNSP, W/O PERF OR ABSCESS W/O BLEED SNOMED Code(s): 511151309
--- NOTE | 2018-10-14 11:55 | P.PN ---
Subjective patient is admitted for diverticulitis and patient is Zosyn for that.. Patient is comparing of severe nausea and patient has sluggish bowel sounds. Abdominal x-rays consistent with ileus. Patient will wait until later in the day and if continues to be nauseous patient will be started on NG tube in the slow intermittent suction. Patient will need bowel rest patient is presently nothing by mouth. Patient's Dilaudid will be discontinued which is probably contributing to his ileus and patient will be started on Toradol for pain. Constitutional: Denied any fatigue denied any fever. Cardio vascular: denied any chest pain, palpitations Gastrointestinal as mentioned in the interval history Pulmonary: Denied any shortness of breath cough Neurologic denied any new focal deficits All inpatient medications were reviewed and appropriate changes in these medications as dictated in the interval history and assessment and plan. Objective - Vital Signs Vital signs: Vital Signs Temp 98.3 F 10/14/18 04:51 Pulse 68 10/14/18 04:51 Resp 18 10/14/18 04:51 BP 118/66 10/14/18 04:51 Pulse Ox 96 10/14/18 04:51 Intake & Output 10/13/18 10/14/18 10/14/18 18:59 06:59 18:59 Intake Total 200 1900 Balance 200 1900 Intake: Intake, IV Titration 200 1900 Amount Piperacillin-Tazobactam 3 100 100 .375 gm In Sodium Chloride 0.9% 100 ml @ 25 mls/hr IVPB Q8HR [facility] Rx# :[id number] Sodium Chloride 0.9% 1, 1700 000 ml @ 125 mls/hr IV . Q8H [facility] Rx#:[id number] metroNIDAZOLE-NS PMX 500 100 100 mg In Saline 1 100ml.bag @ 100 mls/hr IVPB Q8HR [facility] Rx#:[id number] Other: Voiding Method Toilet Toilet # Voids 1 1 # Bowel Movements 1 - Exam PHYSICAL EXAMINATION: GENERAL: The patient is alert and oriented x3, not in any acute distress. Well developed, well nourished. HEENT: Pupils are round and equally reacting to light. EOMI. No scleral icterus. No conjunctival pallor. Normocephalic, atraumatic. No pharyngeal erythema. No thyromegaly. CARDIOVASCULAR: S1 and S2 present. No murmurs, rubs, or gallops. PULMONARY: Chest is clear to auscultation, no wheezing or crackles. ABDOMEN: minimal tenderness in the suprapubic area abdomen is soft but minimally distended tympanic sluggish bowel sounds MUSCULOSKELETAL: No joint swelling or deformity. EXTREMITIES: No cyanosis, clubbing, or pedal edema. NEUROLOGICAL: Gross neurological examination did not reveal any focal deficits. SKIN: No rashes. - Labs CBC & Chem 7: 10/14/18 06:53 10/14/18 06:53 Labs: Abnormal Lab Results - Last 24 Hours (Table) 10/14/18 Range/Units 06:53 Neutrophils # 7.8 H (1.3-7.7) k/uL Microbiology - Last 24 Hours (Table) 10/11/18 19:24 Blood Culture - Preliminary Blood No Growth after 48 hours Assessment and Plan Plan: - ACUTE DIVERTICULITIS with air bubbles and phlegmonous changes: Antibiotics will be continued in the form of Zosyn and then patient will remain nothing by mouth because of a possible ileus above-mentioned medication agents are being made and general surgery is following the patient as well. - Bleeding per rectum possibly secondary to diverticulitis - Ileus versus bowel obstruction as per the CAT scan -gastroesophageal reflux disease -DVT prophylaxis early ambulation and patient will need pharmacologic GI prophylaxis
[2018-10-14] MEDS: KETOROLAC 30 MG/ML 1 ML VIAL IVP PRN ×2 (13:51→22:22)
[2018-10-15 07:20] LABS: Basophils # (A) 0.1 k/uL (0-0.2); Basophils % (A) 1 %; Eosinophils # (A) 0.1 k/uL (0-0.7); Eosinophils % (A) 1 %; HCT 38.9 % (39.0-53.0); HGB 12.9 gm/dL (13.0-17.5); Lymphocytes # (A) 1.7 k/uL (1.0-4.8); Lymphocytes % (A) 27 %; MCH 29.6 pg (25.0-35.0); MCHC 33.2 g/dL (31.0-37.0); MCV 89.1 fL (80.0-100.0); Mean Platelet Volume 7.4; Monocytes # (A) 0.5 k/uL (0-1.0); Monocytes % (A) 8 %; Neutrophils # (A) 3.7 k/uL (1.3-7.7); Neutrophils % (A) 60 %; Platelet Count 281 k/uL (150-450); RBC 4.36 m/uL (4.30-5.90); RDW 13.2 % (11.5-15.5); WBC 6.2 k/uL (3.8-10.6)
[2018-10-15] MEDS: metroNIDAZOLE-NS PMX 500 MG in SALINE 1 100ML.BAG IVPB SCH ×2 (08:12→15:57)
[2018-10-15] MEDS: PIPERACILLIN-TAZOBACTAM 3.375 GM in SODIUM CHLORIDE 0.9% 100 ML IVPB SCH ×2 (08:12→15:57)
[2018-10-15] MEDS: SODIUM CHLORIDE 0.9% 1,000 ML IV SCH ×3 (08:24→19:41)
[2018-10-15] MEDS: PANTOPRAZOLE 40 MG/10 ML VIAL IV SCH (08:24)
--- NOTE | 2018-10-15 09:45 | P.PN ---
Subjective Progress Note Date: 10/15/18 Principal diagnosis: Diverticulitis Patient doing better today. He had multiple loose stools yesterday evening. Still feels slightly bloated but much improved. White blood cell count normal. He is afebrile. Objective - Vital Signs Vital signs: Vital Signs Temp 97.3 F L 10/15/18 05:00 Pulse 55 L 10/15/18 05:00 Resp 17 10/15/18 05:00 BP 106/65 10/15/18 05:00 Pulse Ox 98 10/15/18 05:00 Intake & Output 10/14/18 10/15/18 10/15/18 18:59 06:59 18:59 Other: Voiding Method Toilet # Voids 2 1 # Bowel Movements 1 1 - Exam Abdomen: Soft, nondistended, minimal tenderness - Labs CBC & Chem 7: 10/15/18 06:49 10/14/18 06:53 Labs: Abnormal Lab Results - Last 24 Hours (Table) 10/15/18 Range/Units 06:49 Hgb 12.9 L (13.0-17.5) gm/dL Hct 38.9 L (39.0-53.0) % Microbiology - Last 24 Hours (Table) 10/11/18 19:24 Blood Culture - Preliminary Blood No Growth after 72 hours Assessment and Plan (1) Diverticulitis Narrative/Plan: Resume liquid diet. May advance slowly if tolerates. Hopefully discharge tomorrow. Current Visit: Yes Status: Acute Code(s): K57.92 - DVTRCLI OF INTEST, PART UNSP, W/O PERF OR ABSCESS W/O BLEED SNOMED Code(s): 292908086
--- NOTE | 2018-10-15 14:27 | P.PN ---
Subjective patient is admitted for diverticulitis and patient is Zosyn for that.. Patient is comparing of severe nausea and patient has sluggish bowel sounds. Abdominal x-rays consistent with ileus. Patient will wait until later in the day and if continues to be nauseous patient will be started on NG tube in the slow intermittent suction. Patient will need bowel rest patient is presently nothing by mouth. Patient's Dilaudid will be discontinued which is probably contributing to his ileus and patient will be started on Toradol for pain. 10/15/2018 Patient had multiple bowel movements yesterday after discontinue additional Dilaudid and patient is tolerating Toradol very well and. Is better controlled now with the Toradol. Patient will be started on diet will advance as tolerated possibly can be discharged tomorrow with oral antibiotics, nausea vomiting resolved Constitutional: Denied any fatigue denied any fever. Cardio vascular: denied any chest pain, palpitations Gastrointestinal as mentioned in the interval history Pulmonary: Denied any shortness of breath cough Neurologic denied any new focal deficits All inpatient medications were reviewed and appropriate changes in these medications as dictated in the interval history and assessment and plan. Objective - Vital Signs Vital signs: Vital Signs Temp 98.1 F 10/15/18 13:23 Pulse 56 L 10/15/18 13:23 Resp 16 10/15/18 13:23 BP 112/72 10/15/18 13:23 Pulse Ox 99 10/15/18 13:23 Intake & Output 10/14/18 10/15/18 10/15/18 18:59 06:59 18:59 Other: Voiding Method Toilet # Voids 2 1 # Bowel Movements 1 1 - Exam PHYSICAL EXAMINATION: GENERAL: The patient is alert and oriented x3, not in any acute distress. Well developed, well nourished. HEENT: Pupils are round and equally reacting to light. EOMI. No scleral icterus. No conjunctival pallor. Normocephalic, atraumatic. No pharyngeal erythema. No thyromegaly. CARDIOVASCULAR: S1 and S2 present. No murmurs, rubs, or gallops. PULMONARY: Chest is clear to auscultation, no wheezing or crackles. ABDOMEN: Soft, nontender, nondistended, normoactive bowel sounds. No palpable organomegaly. MUSCULOSKELETAL: No joint swelling or deformity. EXTREMITIES: No cyanosis, clubbing, or pedal edema. NEUROLOGICAL: Gross neurological examination did not reveal any focal deficits. SKIN: No rashes. - Labs CBC & Chem 7: 10/15/18 06:49 10/14/18 06:53 Labs: Abnormal Lab Results - Last 24 Hours (Table) 10/15/18 Range/Units 06:49 Hgb 12.9 L (13.0-17.5) gm/dL Hct 38.9 L (39.0-53.0) % Microbiology - Last 24 Hours (Table) 10/11/18 19:24 Blood Culture - Preliminary Blood No Growth after 72 hours Assessment and Plan Plan: - ACUTE DIVERTICULITIS with air bubbles and phlegmonous changes: Antibiotics will be continued in the form of Zosyn patient was started on diet and let pansystolic - Bleeding per rectum possibly secondary to diverticulitis - Ileus resolved now -gastroesophageal reflux disease -DVT prophylaxis early ambulation and patient will need pharmacologic GI prophylaxis
[2018-10-16] MEDS: PIPERACILLIN-TAZOBACTAM 3.375 GM in SODIUM CHLORIDE 0.9% 100 ML IVPB SCH ×2 (00:31→07:36)
[2018-10-16] MEDS: metroNIDAZOLE-NS PMX 500 MG in SALINE 1 100ML.BAG IVPB SCH ×2 (00:32→07:35)
[2018-10-16] MEDS: KETOROLAC 30 MG/ML 1 ML VIAL IVP PRN (03:36)
[2018-10-16 04:57] VITALS: RESP 16
[2018-10-16] MEDS: SODIUM CHLORIDE 0.9% 1,000 ML IV SCH ×2 (05:44→12:10)
[2018-10-16] MEDS: PANTOPRAZOLE 40 MG/10 ML VIAL IV SCH (07:35)
[2018-10-16] MEDS: ONDANSETRON 4 MG/2 ML VIAL IVP PRN (07:36)
[2018-10-16 11:05] VITALS: BMI 22.9
--- NOTE | 2018-10-16 12:11 | P.DS ---
Providers Date of admission: 10/11/18 20:47 Attending physician: Dorian Gaona MD Consults: 10/11/18 20:48 Consult Physician Routine Consulting Provider: Qiana Ellis Consult Reason/Comments: Abdominal pain, diverticulitis Do you want consulting provider notified?: Already Contacted Primary care physician: Stated None Hospital Course: patient is admitted for diverticulitis and patient is Zosyn for that.. Patient is comparing of severe nausea and patient has sluggish bowel sounds. Abdominal x-rays consistent with ileus. Patient will wait until later in the day and if continues to be nauseous patient will be started on NG tube in the slow intermittent suction. Patient will need bowel rest patient is presently nothing by mouth. Patient's Dilaudid will be discontinued which is probably contributing to his ileus and patient will be started on Toradol for pain. 10/15/2018 Patient had multiple bowel movements yesterday after discontinue additional Dilaudid and patient is tolerating Toradol very well and. Is better controlled now with the Toradol. Patient will be started on diet will advance as tolerated possibly can be discharged tomorrow with oral antibiotics, nausea vomiting resolved 10/16/2018 Patient had EPISODE OF DIARRHEA TODAY THIS IS SECONDARY TO THE ANTIBIOTICS PATIENT WILL BE DISCHARGED ON AUGMENTIN FOR 5 DAYS SEND THE SINCE PATIENT DOESN'T HAVE MANY EPISODES OF DIARRHEA DO NOT BELIEVE PATIENT WILL BE DEHYDRATED. PATIENT WAS ASKED TO DRINK LOTS OF WATER AT HOME. PATIENT WAS ALSO COMPLAINING OF SOME EPIGASTRIC ABDOMINAL DISCOMFORT WHICH I BELIEVE SECONDARY TO STRESS ULCERATIONS AND TORADOL IS RECEIVING HERE PATIENT WILL BE DISCHARGED ON PRILOSEC FOR ABOUT 10 DAYS PHYSICAL EXAMINATION: GENERAL: The patient is alert and oriented x3, not in any acute distress. Well developed, well nourished. HEENT: Pupils are round and equally reacting to light. EOMI. No scleral icterus. No conjunctival pallor. Normocephalic, atraumatic. No pharyngeal erythema. No thyromegaly. CARDIOVASCULAR: S1 and S2 present. No murmurs, rubs, or gallops. PULMONARY: Chest is clear to auscultation, no wheezing or crackles. ABDOMEN: Soft, nontender, nondistended, normoactive bowel sounds. No palpable organomegaly. MUSCULOSKELETAL: No joint swelling or deformity. EXTREMITIES: No cyanosis, clubbing, or pedal edema. NEUROLOGICAL: Gross neurological examination did not reveal any focal deficits. SKIN: No rashes. Assessment and Plan Plan: - ACUTE DIVERTICULITIS with air bubbles and phlegmonous changes: - Bleeding per rectum possibly secondary to diverticulitis - Ileus resolved now -gastroesophageal reflux disease Patient Condition at Discharge: Fair Plan - Discharge Summary Discharge Rx Participant: No New Discharge Prescriptions: New Omeprazole [PriLOSEC] 20 mg PO AC-BID #20 cap Continue Amoxic-Pot Clav 875-125Mg [Augmentin 875-125] 1 tab PO Q12HR #10 tablet Discharge Medication List Amoxic-Pot Clav 875-125Mg [Augmentin 875-125] 1 tab PO Q12HR #10 tablet 10/16/18 [Rx] Omeprazole [PriLOSEC] 20 mg PO AC-BID #20 cap 10/16/18 [Rx] Follow up Appointment(s)/Referral(s): Lionel Gross MD [STAFF PHYSICIAN] - 10/17/18 2:30 pm Qiana Ellis MD [STAFF PHYSICIAN] - 1 Week Activity/Diet/Wound Care/Special Instructions: Outpatient colonoscopy in 4-6 weeks. Follow up with Dr. Ellis Discharge Disposition: HOME SELF-CARE
[2018-10-16 12:37] VITALS: BP 127/72; PULSE 51; TEMP 98.8
[2018-10-16] MEDS ORDERED: metroNIDAZOLE 500 MG TAB PO SCH (16:00)
[2018-10-17] MEDS ORDERED: PANTOPRAZOLE 40 MG TABLET PO SCH (09:00)
== END 2018-10-16 13:23 | disposition home or self-care (01) | DRG 378 ==
LOC: EC 18:00 → 3NMEDONC 20:47
PROVIDERS: ADMIT Internal Medicine; ATTEND Internal Medicine
DX: K57.33 Diverticulitis of large intestine without perforation or abscess with bleeding (principal); K56.7 Ileus, unspecified; K52.1 Toxic gastroenteritis and colitis; K92.1 Melena; K21.9 Gastro-esophageal reflux disease without esophagitis; F17.210 Nicotine dependence, cigarettes, uncomplicated; T36.0X5A Adverse effect of penicillins, initial encounter; K25.9 Gastric ulcer, unspecified as acute or chronic, without hemorrhage or perforation; T39.8X5A Adverse effect of other nonopioid analgesics and antipyretics, not elsewhere classified, initial encounter; Z96.653 Presence of artificial knee joint, bilateral; Z82.49 Family history of ischemic heart disease and other diseases of the circulatory system; Z83.71 Family history of colonic polyps
CPT/HCPCS: 36415; 74019; 74177; 80048; 80053; 81003; 82150; 83605; 83690; 85025; 85027; 87040; 96361; 96365; 96366; 96375; 99285

== ENCOUNTER 2018-11-23 09:46 | Day surgery (SDC) | payer BC ==
[2018-11-22 08:31] VITALS: BMI 24.3
--- NOTE | 2018-11-23 07:33 | P.GSHP ---
History of Present Illness H&P Date: 11/23/18 CHIEF COMPLAINT: Abdominal pain with diarrhea and history of diverticulitis HISTORY OF PRESENT ILLNESS: The patient is a 33-year-old male who presents with abdominal pain including diarrhea as well as diverticulitis. Lower endoscopy was offered for further evaluation and management. PAST MEDICAL HISTORY: Please see list. PAST SURGICAL HISTORY: Please see list. MEDICATIONS: Please see list. ALLERGIES: Please see list. SOCIAL HISTORY: No illicit drug use FAMILY HISTORY: No reports of Crohn disease or ulcerative colitis. REVIEW OF ORGAN SYSTEMS: CONSTITUTIONAL: No reports of fevers or chills. No reports of weight loss despite prior attempts. GI: Has diarrhea including change in bowel habits. PHYSICAL EXAM: VITAL SIGNS: Stable GENERAL: Well-developed pleasant male in no acute distress. HEENT: No scleral icterus. Extraocular movements grossly intact. Moist buccal mucosa. NECK: Supple without lymphadenopathy. CHEST: Unlabored respirations. Equal bilateral excursions. CARDIOVASCULAR: Regular rate and rhythm. Distal 2+ pulses. ABDOMEN: Soft, nontender, nondistended. MUSCULOSKELETAL: No clubbing, cyanosis, or edema. ASSESSMENT: 1. History of diverticulitis 2. Change in bowel habits. 3. Diarrhea PLAN: 1. Recommend proceeding with a lower endoscopy Past Medical History Past Medical History: GERD/Reflux Additional Past Medical History / Comment(s): BRONCHITIS, divirticulitis History of Any Multi-Drug Resistant Organisms: None Reported Past Surgical History: Adenoidectomy, Ear Surgery, Hernia Repair, Orthopedic Surgery Additional Past Surgical History / Comment(s): acl replacement RT KNEE, RIKKI INGUINAL HERNIA REPAIR, TUBES IN EARS. Past Anesthesia/Blood Transfusion Reactions: No Reported Reaction Smoking Status: Current every day smoker - Past Family History Father Family Medical History: Hypertension Additional Family Medical History / Comment(s): COLON PLOYPS Mother Family Medical History: No Reported History Medications and Allergies Home Medications Medication Instructions Recorded Confirmed Type No Known Home Medications 11/22/18 11/22/18 History Allergies Allergy/AdvReac Type Severity Reaction Status Date / Time No Known Allergies Allergy Verified 11/22/18 08:26
[~2018-11-23 09:46] MED LIST: LACTATED RINGERS 1,000 ML IV SCH; LIDOCAINE 1% 20 ML VIAL (10MG/ML) FOR IV START INTRADERMA PRN
[2018-11-23 10:06] VITALS: TEMP 97
[2018-11-23] MEDS ORDERED: MIDAZOLAM 2 MG/2 ML VIAL ONE (10:25)
[2018-11-23] MEDS ORDERED: PROPOFOL 10 MG/ML 20 ML VIAL IV ONE (10:25)
--- NOTE | 2018-11-23 10:45 | P.PCN ---
Date of Procedure: 11/23/18 Description of Procedure: PREOPERATIVE DIAGNOSIS: Diverticulitis POSTOPERATIVE DIAGNOSIS: Acute diverticulitis, sigmoid colon OPERATION: Colonoscopy to the sigmoid colon/sigmoidoscopy SURGEON: Qiana Ellis MD. ANESTHESIA: MAC. INDICATIONS: The patient is a 33-year-old male who presents with history of diverticulitis. Lower endoscopy was offered further diagnostic evaluation and assessment. Benefits and risks were described and informed consent was obtained. DESCRIPTION OF PROCEDURE: The patient had undergone Suprep. He had been brought into the operating room and laid in the left lateral decubitus position. After adequate intravenous sedation, the rectum was examined with 2% lidocaine jelly. No external hemorrhoids were encountered. The rectal tone was within normal limits . No lesions were palpated in the rectal vault. the prostate was within normal limits. An Olympus colonoscope was advanced along the rectum to over 30 cm from the anal verge. Active diverticulitis and inflammation of the mucosa was identified prohibiting safe advancement of the scope. The procedure was discontinued for high risk of perforation in the setting of acute sigmoid diverticulitis. The scope was passed to the sigmoid colon. The colon was desufflated. The patient had tolerated the procedure well. FINDINGS: Aronchik preparation quality scale 1 (1-5) Acute diverticulitis of the sigmoid colon with tortuous colon No external prolapsed hemorrhoids. Scope advanced to sigmoid colon beyond 30 cm. No arteriovenous malformations. No adenomatous polyps. No acute internal hemorrhoids. RECOMMENDATIONS: Recommend treatment for active diverticulitis. Will need colonoscopy in the future. Plan - Discharge Summary Discharge Rx Participant: No New Discharge Prescriptions: No Action No Known Home Medications Discharge Medication List No Known Home Medications 11/22/18 [History]
[2018-11-23 11:00] VITALS: BP 123/85; PULSE 68; RESP 16
== END 2018-11-23 11:35 | disposition home or self-care (01) ==
LOC: ORWHC2ENDO 09:46
PROVIDERS: ATTEND Surgery Plastic and Reconstructive Surgery
DX: K57.32 Diverticulitis of large intestine without perforation or abscess without bleeding (principal); K21.9 Gastro-esophageal reflux disease without esophagitis; F17.200 Nicotine dependence, unspecified, uncomplicated; Z82.49 Family history of ischemic heart disease and other diseases of the circulatory system; Z83.71 Family history of colonic polyps
CPT/HCPCS: 45330; J2250; J2704

== ENCOUNTER 2020-09-02 08:23 | Emergency (ER) | payer BC, OTHER ==
[2020-09-02 08:31] VITALS: TEMP 97.3
[2020-09-02] MEDS ORDERED: SODIUM CHLORIDE 0.9% 1,000 ML IV ONE ×2 (08:46→09:50)
[2020-09-02] MEDS ORDERED: SODIUM CHLORIDE 0.9% 500 ML 500 ML IV ONE (08:46)
[2020-09-02 08:58] LABS: Basophils # (A) 0.1 k/uL (0-0.2); Basophils % (A) 1 %; Eosinophils # (A) 0.2 k/uL (0-0.7); Eosinophils % (A) 3 %; HCT 51.4 % (39.0-53.0); HGB 17.8 gm/dL (13.0-17.5); Lymphocytes # (A) 1.5 k/uL (1.0-4.8); Lymphocytes % (A) 18 %; MCH 30.8 pg (25.0-35.0); MCHC 34.6 g/dL (31.0-37.0); Mean Platelet Volume 7.1; Monocytes # (A) 0.5 k/uL (0-1.0); Monocytes % (A) 5 %; Neutrophils # (A) 5.9 k/uL (1.3-7.7); Neutrophils % (A) 71 %; Platelet Count 308 k/uL (150-450); RBC 5.78 m/uL (4.30-5.90); RDW 11.8 % (11.5-15.5); WBC 8.3 k/uL (3.8-10.6)
[2020-09-02 09:14] LABS: Appearance,Urine Clear (Clear); Bilirubin,Urine 1+ (Negative); Blood,Urine Negative (Negative); Color,Urine Yellow; Glucose,Urine (UA) Negative (Negative); Hyaline Casts,Urine 1 /lpf (0-2); Ketones,Urine 4+ (Negative); Leukocyte Esterase,Urine Negative (Negative); Mucus,Urine Many /hpf; Nitrite,Urine Negative (Negative); Protein,Urine 1+ (Negative); RBC,Urine 1 /hpf (0-5); Squamous Epithelial Cell,Urine <1 /hpf (0-4); WBC,Urine 3 /hpf (0-5)
--- NOTE | 2020-09-02 09:14 | ED ---
Abdominal Pain HPI - General Chief Complaint: Abdominal Pain Stated Complaint: Abd Pain/Diverticulitis Time Seen by Provider: 09/02/20 08:33 Source: patient, RN notes reviewed Mode of arrival: ambulatory Limitations: no limitations - History of Present Illness Initial Comments: This a 34-year-old male presents emergency Department chief complaint of abd ominal pain. Patient does have history of diverticulitis. Patient states about 8 or 9 days ago he started having similar pain states that he essentially stopped eating food states he's been drinking fluids to try to improve his symptoms. Patient states pain is not improving started noticing blood within the stool. Patient denies any rectal pain. He states he is abdominal pain no fever or chills noted. Patient has no complaints of nausea vomiting chest pain shortness breath currently. Patient states that he did follow for colostomy but still had swelling and states he was unable to complete it and never followed up after. Patient has no history of ulcerative colitis or Crohn's disease - Related Data Previous Rx's Medication Instructions Recorded Amoxicillin/Potassium Clav 1 tab PO Q12HR #20 tab 09/02/20 [Augmentin 875-125 Tablet] Ondansetron Odt [Zofran Odt] 4 mg PO Q8HR PRN #10 tab 09/02/20 Allergies Allergy/AdvReac Type Severity Reaction Status Date / Time No Known Allergies Allergy Verified 09/02/20 09:53 Review of Systems ROS Statement: Those systems with pertinent positive or pertinent negative responses have been documented in the HPI. ROS Other: All systems not noted in ROS Statement are negative. Past Medical History Past Medical History: GERD/Reflux Additional Past Medical History / Comment(s): BRONCHITIS, divirticulitis History of Any Multi-Drug Resistant Organisms: None Reported Past Surgical History: Adenoidectomy, Ear Surgery, Hernia Repair, Orthopedic Surgery Additional Past Surgical History / Comment(s): acl replacement RT KNEE, RIKKI INGUINAL HERNIA REPAIR, TUBES IN EARS. Past Anesthesia/Blood Transfusion Reactions: No Reported Reaction Past Psychological History: No Psychological Hx Reported Smoking Status: Current every day smoker Past Alcohol Use History: Rare Past Drug Use History: Marijuana - Past Family History Father Family Medical History: Hypertension Additional Family Medical History / Comment(s): COLON PLOYPS Mother Family Medical History: No Reported History General Exam Limitations: no limitations General appearance: alert, in no apparent distress Head exam: Present: atraumatic, normocephalic, normal inspection Eye exam: Present: normal appearance, PERRL, EOMI. Absent: scleral icterus, conjunctival injection, periorbital swelling ENT exam: Present: normal exam, normal oropharynx, mucous membranes moist Neck exam: Present: normal inspection, full ROM. Absent: tenderness, meningismus, lymphadenopathy Respiratory exam: Present: normal lung sounds bilaterally. Absent: respiratory distress, wheezes, rales, rhonchi, stridor Cardiovascular Exam: Present: regular rate, normal rhythm, normal heart sounds. Absent: systolic murmur, diastolic murmur, rubs, gallop, clicks GI/Abdominal exam: Present: soft, tenderness, normal bowel sounds. Absent: di stended, guarding, rebound, rigid Back exam: Absent: CVA tenderness (R), CVA tenderness (L) Neurological exam: Present: alert, oriented X3 Skin exam: Present: warm, dry, intact, normal color. Absent: rash Course Vital Signs 09/02/20 08:29 Temperature 97.3 F L Pulse Rate 71 Respiratory 18 Rate Blood Pressure 127/84 O2 Sat by Pulse 98 Oximetry Medical Decision Making - Medical Decision Making 34-year-old presented for abdominal pain CT shows evidence of inflammatory changes, diverticulitis or free air/perforation. Patient feels comfortable with discharge he was offered admission. Patient given dose of IV antibiotics. Patient was well hydrated as he did show some signs of dehydration. Patient w ill follow-up with prior surgeon return parameters were discussed. - Lab Data Result diagrams: 09/02/20 08:53 09/02/20 08:53 Lab Results 09/02/20 09/02/20 09/02/20 Range/Units 08:53 08:53 08:53 WBC 8.3 (3.8-10.6) k/uL RBC 5.78 (4.30-5.90) m/uL Hgb 17.8 H (13.0-17.5) gm/dL Hct 51.4 (39.0-53.0) % MCV 89.0 (80.0-100.0) fL MCH 30.8 (25.0-35.0) pg MCHC 34.6 (31.0-37.0) g/dL RDW 11.8 (11.5-15.5) % Plt Count 308 (150-450) k/uL MPV 7.1 Neutrophils % 71 % Lymphocytes % 18 % Monocytes % 5 % Eosinophils % 3 % Basophils % 1 % Neutrophils # 5.9 (1.3-7.7) k/uL Lymphocytes # 1.5 (1.0-4.8) k/uL Monocytes # 0.5 (0-1.0) k/uL Eosinophils # 0.2 (0-0.7) k/uL Basophils # 0.1 (0-0.2) k/uL Sodium 136 L (137-145) mmol/L Potassium 4.1 (3.5-5.1) mmol/L Chloride 101 (98-107) mmol/L Carbon Dioxide 23 (22-30) mmol/L Anion Gap 12 mmol/L BUN 18 (9-20) mg/dL Creatinine 0.88 (0.66-1.25) mg/dL Est GFR (CKD-EPI)AfAm >90 (>60 ml/min/1.73 sqM) Est GFR (CKD-EPI)NonAf >90 (>60 ml/min/1.73 sqM) Glucose 88 (74-99) mg/dL Plasma Lactic Acid [place] (0.7-2.0) mmol/L Calcium 9.1 (8.4-10.2) mg/dL Total Bilirubin 0.7 (0.2-1.3) mg/dL AST 29 (17-59) U/L ALT 10 (4-49) U/L Alkaline Phosphatase 56 (38-126) U/L Total Protein 7.8 (6.3-8.2) g/dL Albumin 4.6 (3.5-5.0) g/dL Lipase 69 (23-300) U/L Urine Color Yellow Urine Appearance Clear (Clear) Urine pH 6.0 (5.0-8.0) Ur Specific [place] 1.030 (1.001-1.035) Urine Protein 1+ H (Negative) Urine Glucose (UA) Negative (Negative) Urine Ketones 4+ H (Negative) Urine Blood Negative (Negative) Urine Nitrite Negative (Negative) Urine Bilirubin 1+ H (Negative) Urine Urobilinogen 2.0 (<2.0) mg/dL Ur Leukocyte Esterase Negative (Negative) Urine RBC 1 (0-5) /hpf Urine WBC 3 (0-5) /hpf Ur Squamous Epith Cells <1 (0-4) /hpf Hyaline Casts 1 (0-2) /lpf Urine Mucus Many H (None) /hpf 09/02/20 Range/Units 08:53 WBC (3.8-10.6) k/uL RBC (4.30-5.90) m/uL Hgb (13.0-17.5) gm/dL Hct (39.0-53.0) % MCV (80.0-100.0) fL MCH (25.0-35.0) pg MCHC (31.0-37.0) g/dL RDW (11.5-15.5) % Plt Count (150-450) k/uL MPV Neutrophils % % Lymphocytes % % Monocytes % % Eosinophils % % Basophils % % Neutrophils # (1.3-7.7) k/uL Lymphocytes # (1.0-4.8) k/uL Monocytes # (0-1.0) k/uL Eosinophils # (0-0.7) k/uL Basophils # (0-0.2) k/uL Sodium (137-145) mmol/L Potassium (3.5-5.1) mmol/L Chloride (98-107) mmol/L Carbon Dioxide (22-30) mmol/L Anion Gap mmol/L BUN (9-20) mg/dL Creatinine (0.66-1.25) mg/dL Est GFR (CKD-EPI)AfAm (>60 ml/min/1.73 sqM) Est GFR (CKD-EPI)NonAf (>60 ml/min/1.73 sqM) Glucose (74-99) mg/dL Plasma Lactic Acid [place] 0.8 (0.7-2.0) mmol/L Calcium (8.4-10.2) mg/dL Total Bilirubin (0.2-1.3) mg/dL AST (17-59) U/L ALT (4-49) U/L Alkaline Phosphatase (38-126) U/L Total Protein (6.3-8.2) g/dL Albumin (3.5-5.0) g/dL Lipase (23-300) U/L Urine Color Urine Appearance (Clear) Urine pH (5.0-8.0) Ur Specific [place] (1.001-1.035) Urine Protein (Negative) Urine Glucose (UA) (Negative) Urine Ketones (Negative) Urine Blood (Negative) Urine Nitrite (Negative) Urine Bilirubin (Negative) Urine Urobilinogen (<2.0) mg/dL Ur Leukocyte Esterase (Negative) Urine RBC (0-5) /hpf Urine WBC (0-5) /hpf Ur Squamous Epith Cells (0-4) /hpf Hyaline Casts (0-2) /lpf Urine Mucus (None) /hpf Disposition Clinical Impression: Diverticulitis, Abdominal pain, Dehydration Disposition: HOME SELF-CARE Condition: Stable Instructions (If sedation given, give patient instructions): Diverticulitis (ED), Diverticulitis Diet (ED) Additional Instructions: Please return to the Emergency Department if symptoms worsen or any other concerns. Prescriptions: Amoxicillin/Potassium Clav [Augmentin 875-125 Tablet] 1 tab PO Q12HR #20 tab Ondansetron Odt [Zofran Odt] 4 mg PO Q8HR PRN #10 tab PRN Reason: Nausea Is patient prescribed a controlled substance at d/c from ED?: No Referrals: None,Stated [Primary Care Provider] - 1-2 days Qiana Ellis MD [STAFF PHYSICIAN] - 1-2 days Time of Disposition: 10:32
[2020-09-02 09:34] LABS: ALT 10 U/L (4-49); AST 29 U/L (17-59); African American GFR (CKD) >90 (>60 ml/min/1.73 sqM); Albumin 4.6 g/dL (3.5-5.0); Alkaline Phosphatase 56 U/L (38-126); Anion Gap 12 mmol/L; Blood Urea Nitrogen 18 mg/dL (9-20); Calcium 9.1 mg/dL (8.4-10.2); Carbon Dioxide 23 mmol/L (22-30); Chloride 101 mmol/L (98-107); Glucose 88 mg/dL (74-99); Lipase 69 U/L (23-300); Non-African American GFR(CKD) >90 (>60 ml/min/1.73 sqM); Potassium 4.1 mmol/L (3.5-5.1); Sodium 136 mmol/L (137-145); Total Bilirubin 0.7 mg/dL (0.2-1.3); Total Protein 7.8 g/dL (6.3-8.2)
--- NOTE | 2020-09-02 09:40 | CT ---
EXAMINATION TYPE: CT abdomen pelvis w con DATE OF EXAM: 09/02/2020 COMPARISON: 10/11/2018 HISTORY: 34-year-old male Lower abdominal pain, history of diverticulitis TECHNIQUE: Contiguous axial scanning of the abdomen and pelvis following administration of 100 ml Iso amberly 300 IV contrast. Delayed images through the kidneys and coronal/sagittal reconstructions perform ed. CT DLP: 874.8 mGycm Automated exposure control for dose reduction was used. FINDINGS: Heart normal size without pericardial effusion. Some focal fat along the anterior falciform ligament. Slight low attenuation of the hepatic parenchym a suggesting some fatty infiltration. Portal venous system is patent. No biliary ductal dilatation. Gallbladder, adrenal glands, kidneys, spleen, and pancreas appear within normal limits. No dilated small bowel, free fluid, or free air. No mesenteric or retroperitoneal lymphadenopathy. Scattered colonic diverticulosis. Normal appendix. Along the distal sigmoid, there is moderate to severe wall thickening for a span of approximately 8 c m with associated pericolonic fat stranding. Small foci of air just adjacent are likely located withi n diverticula. No obvious free air is identified this time. Bladder is collapsed. No abnormal fluid collection the pelvis or pelvic lymphadenopathy. Bones: A few stable scattered bone islands which is in the proximal left femur, posterior left acetab ulum, and left sacrum. IMPRESSION: Recurrent acute diverticulitis along the distal sigmoid. There is moderate to severe associated wall thickening and inflammation. No definite free air is seen at this time. Small adjacent air bubbles ar e felt to reflect diverticula in this region. No abscess formation. Given the degree of inflammation, follow-up if the patient does not improve with medical management.
[2020-09-02] MEDS ORDERED: cefTRIAXone IN SWFI 1,000 MG/10 ML SYRINGE IVP STA (10:15)
[2020-09-02] MEDS ORDERED: ACET/COD 300 MG/30 MG STARTER PACK 6 TAB BTL PO STA (10:31)
[2020-09-02 10:40] VITALS: BP 115/73; PULSE 66; RESP 16
[2020-09-02] MEDS ORDERED: cefTRIAXone 1,000 MG VIAL (IM USE) IM STA (10:43)
== END 2020-09-02 10:34 | disposition home or self-care (01) ==
LOC: EC 08:23
DX: K57.32 Diverticulitis of large intestine without perforation or abscess without bleeding (principal); E86.0 Dehydration; F17.200 Nicotine dependence, unspecified, uncomplicated; F12.90 Cannabis use, unspecified, uncomplicated; Z93.3 Colostomy status
CPT/HCPCS: 36415; 80053; 83605; 83690; 85025; 81001; 74177; 99284; 96372; 96360; J0696; Q9967; 96376